=== PATIENT | female | born 1940 | race Caucasian/White ===

== ENCOUNTER 2024-12-16 08:33 | Outpatient (CLI) | payer OTHER ==
[~2024-12-16 08:33] MED LIST: HYDR1TAB PO; IBUP-1984 PO; ZOF4T PO
--- NOTE | 2024-12-17 04:38 | CONSULTATION ---
DATE OF CONSULTATION: 12/16/2024 DICTATING PHYSICIAN: Hilaria Burger M.S., [facility] REFERRING PHYSICIAN: Junior Garcia MD HISTORY OF PRESENT ILLNESS: The patient is an 84-year-old female and consents to this evaluation. In history obtained from the patient and medical records, the patient reports symptoms of dysphagia including gagging and choking when she is swallowing. She reports that this has been occurring for about a year and concerns her because she lives alone. She notes that this happens more often when it is later in the day or at nighttime. She sometimes has emesis due to this gagging and choking that occurs and this once occurred at the dentist as well. The patient reports history of an MRI that revealed sinusitis in the mastoids, dizziness that has been occurring for 3 months, breast cancer and a hiatal hernia. CURRENT DIET: In terms of caffeine, the patient has 1 cup of coffee in the morning. She will also occasionally have chamomile tea or for carbonation she will have Sprite. She does not utilize tobacco products or drink alcohol. In terms of dairy products, the patient has creamer in her coffee, milk in her cereal and cream cheese on her bagels. She very rarely has chocolate. A typical breakfast consists of cereal and half a bagel with cream cheese. She does not snack in the morning. A typical lunch is usually a sandwich. She does not snack in the afternoon. Dinner is between 4 and 5 p.m. and maybe soup, fish or hamburgers. She then may have a Sprite with ice cream in it in the summer and goes to bed between 8 and 9 p.m. MEDICATIONS: Amlodipine 50 mg 1 tablet once daily orally, celecoxib 200 mg b.i.d. p.r.n., escitalopram 10 mg 1 tablet p.o. q. day, losartan 100 mg 1 tablet once daily orally, omeprazole 20 mg p.o. q. day, pravastatin 40 mg 1 tablet once daily orally. PARAMETERS: The patient is seated in a lateral 90-degree view and administered the usual protocol of thin and nectar-thick liquids, pureed and solid consistencies, as well as self-regulated boluses of thin liquids from the cup. RESULTS: In the oral stage of the swallow, lingual strength is mildly reduced. There is a mild oral residue following the initial swallow boluses. In the pharyngeal stage of the swallow, swallow initiation is delayed to the level of the vallecula for thin liquid boluses. Tongue base retraction is mild to moderately reduced. Anterior movement of the posterior pharyngeal wall is observed. Elevation of the hyothyroid complex is accomplished with mildly reduced epiglottic inversion. There is for the most part mild to moderate pharyngeal residue residing mostly at the level of the vallecula following initial swallow of the boluses but for the self-regulated bolus of thin liquid from the cup, this was a moderate pharyngeal residue with it also residing above the level of the PES opening. PES opening is within functional limits. At no time is the patient noted to penetrate or aspirate on any of the bolus sizes or consistencies. ANTERIOR, POSTERIOR VIEW: In the AP plane, the bolus split symmetrically between the piriform sinuses and there was proximal movement noted to the level of the clavicle. IMPRESSION: The patient demonstrates what appears to be a moderate pharyngoesophageal stage swallowing disorder characterized by mild to moderately reduced tongue base retraction and proximal movement of the boluses to the level of the clavicle. DIAGNOSES: R13.14, dysphagia, pharyngoesophageal phase; K21.9, gastroesophageal reflux disease. PATIENT EDUCATION: Immediately following modified barium swallow study, the patient was able to view the results. The normal anatomy of the swallowing mechanism was revealed. The patient was able to see how the current status of the swallowing mechanism decreases her ability to swallow normally. She was educated on a recommendation for speech therapy to strengthen the muscles involved in swallowing. The patient was also educated on dietary modifications for laryngopharyngeal reflux disease with written handout provided. RECOMMENDATIONS: 1. It is recommended that the patient receive swallowing therapy 1 time weekly for 12 weeks to improve the strength and range of motion of the swallowing musculature to ensure airway safety protection and prevent aspiration. 2. It is recommended that the patient follow the aforementioned dietary modifications for laryngopharyngeal reflux disease. LONG-TERM GOALS: The patient will maintain adequate hydration/nutrition with optimum safety and efficiency of swallow function on p.o. intake without overt signs and symptoms of aspiration for the highest possible diet level. PROGNOSIS: Prognosis for the patient is good in terms of patient motivation and willingness to learn. FUNCTIONAL ORAL INTAKE: The FOIS was administered to establish and document a change in the functional eating activities of this patient over time. This is a 7-point scale with 1 indicating no oral intake and totally tube dependent and 7 indicating total oral intake with no restrictions. This patient received a 6 which indicates total oral intake with multiple consistencies without special preparation but with specific food limitations and precautions. G-CODE: [id number] Thank you very much for asking me to participate in the care of this kind patient. Should you have any questions regarding this evaluation or recommendations, please do not hesitate to contact me at [phone]. During this examination, 2.44 minutes of fluoroscopy time and 11.96 CAK mGy were utilized. Hilaria Burger M.S., [facility] TID: [id number] RECEIPT: [id number] [facility]
== END 2024-12-16 23:59 | disposition home or self-care (01) ==
LOC: RAD 08:33
PROVIDERS: ATTEND Family Medicine
DX: R13.10 Dysphagia, unspecified (principal); K21.9 Gastro-esophageal reflux disease without esophagitis
CPT/HCPCS: 74230